=== PATIENT | female | born 1955 | race Caucasian/White ===

== ENCOUNTER 2017-07-28 10:52 | Emergency (ER) | payer OTHER ==
[~2017-07-28] VITALS: Ht 180.3 cm; Wt 95.5 kg
[2017-07-28] MEDS ORDERED: KETOROLAC 30 MG/1 ML ONE (11:21)
[2017-07-28] MEDS ORDERED: DIAZEPAM 5 MG TABLET ONE (11:21)
[2017-07-28] MEDS ORDERED: OXYcodone/APAP 5/325MG TABLET ONE (11:21)
[2017-07-28] MEDS ORDERED: KETOROLAC 30 MG/1 ML IM ONE (11:30)
[2017-07-28] MEDS ORDERED: DIAZEPAM 5 MG TABLET PO ONE (11:30)
[2017-07-28] MEDS ORDERED: OXYcodone/APAP 5/325MG TABLET PO ONE (11:30)
[2017-07-28] MEDS ORDERED: HYDROmorphone 2 MG/ML, 1ML ONE (12:50)
[2017-07-28] MEDS ORDERED: HYDROmorphone 1 MG/ML, 1ML IM ONE (13:00)
[2017-07-28 14:06] VITALS: BP 142/91
== END 2017-07-28 14:24 | disposition home or self-care (01) ==
LOC: ED 14:00
DX: S39.012A Strain of muscle, fascia and tendon of lower back, initial encounter (principal); W18.31XA Fall on same level due to stepping on an object, initial encounter; Y93.89 Activity, other specified; Y99.8 Other external cause status; Y92.89 Other specified places as the place of occurrence of the external cause
CPT/HCPCS: 72110; 73502; 96372; 99284; J1170; J1885